=== PATIENT | female | born 1940 | race Caucasian/White ===

== ENCOUNTER 2022-05-04 19:41 | Emergency (ER) | payer OTHER ==
[~2022-05-04] VITALS: Ht 162.6 cm; Wt 63.0 kg
[2022-05-04 20:12] VITALS: BP_SYST 158
--- NOTE | 2022-05-04 20:12 | NUR ---
Patient came to the ER accompanmied by here for evaluation s/p mechanical fall happened around 1600 hrs, unwitnessed. Patient does not remember what happened. Patient with history of Alzheimer's dse. Denies pain at this time. No associated symptoms. Does report associated knee pain bilaterally. Patient breathing easy, respirations even unlabored. Patient ambulatory with steady gait.
--- NOTE | 2022-05-04 20:23 | NUR ---
Patient triaged and placed in waiting room. VS checked and patient appears in no acute distress at this time. Accompanied by , awaiting available bed, and MD notified of need for MSE.
--- NOTE | 2022-05-04 22:50 | NUR ---
Pt placed to ER chair 1. Pt BIB r/t c/o head pain s/p fall earlier this afternoon. states that he brought pt to urgent care, but was then referred to ER for further evaluation. states that pt told her she fell and hit head, but pt currently denies c/o pain or discomfort and there are no s/s injury or trauma. Denies LOC.
--- NOTE | 2022-05-04 23:00 | NUR ---
ER examining patient.
[2022-05-05 01:21] VITALS: BP_SYST 132
--- NOTE | 2022-05-05 01:21 | NUR ---
Patient given written and verbal discharge instructions and verbalizes understanding. ER MD discussed with patient the results and treatment provided. Patient in stable condition. ID arm band removed. No Rx given. Patient educated on pain management and to follow up with PMD. Pain Scale 0/10. Opportunity for questions provided and answered. Medication side effect fact sheet provided.
== END 2022-05-05 01:21 | disposition home or self-care (01) ==
LOC: SED 19:41
DX: S80.912A Unspecified superficial injury of left knee, initial encounter (principal); S80.911A Unspecified superficial injury of right knee, initial encounter; Z79.899 Other long term (current) drug therapy; W19.XXXA Unspecified fall, initial encounter; Y93.89 Activity, other specified; Y92.89 Other specified places as the place of occurrence of the external cause; Y99.8 Other external cause status
CPT/HCPCS: 70450-TC; 72125-TC; 76376; 99284

== ENCOUNTER 2023-04-11 14:32 | Inpatient (IN) | payer OTHER ==
[~2023-04-11] VITALS: Ht 165.1 cm; Wt 59.0 kg
[2023-04-11 14:35] VITALS: RESP 18; TEMP 97.3
[2023-04-11] MEDS ORDERED: NACL 0.9% 1,000 ML IV ONE (14:45)
[2023-04-11 15:09] LABS: BASOPHILS # (AUTO) 0.1 K/uL (0.0-0.2); BASOPHILS % (AUTO) 0.9 % (0.0-2.0); EOSINOPHILS # (AUTO) 0.1 K/uL (0.0-0.4); EOSINOPHILS % (AUTO) 1.2 % (0.0-4.0); HEMOGLOBIN 12.1 g/dL (12.0-16.0); LYMPHOCYTES # (AUTO) 1.6 K/uL (1.0-5.5); LYMPHOCYTES % (AUTO) 16.9 % (20.5-51.5); MEAN CORPUSCULAR HEMOGLOBIN 29 pg (27-31); MEAN CORPUSCULAR HGB CONC 33 % (32-36); MEAN CORPUSCULAR VOLUME 88 fL (79.0-98.0); MONOCYTES # (AUTO) 0.6 K/uL (0.0-1.0); MONOCYTES % (AUTO) 6.2 % (1.7-9.3); NEUTROPHILS % (AUTO) 74.8 % (40.0-70.0); PLATELET COUNT (AUTO) 307 K/uL (130-430); RED BLOOD CELL COUNT(AUTO) 4.23 MIL/uL (4.2-6.2); RED CELL DISTRIBUTION WIDTH 13.1 % (9.0-15.0); WHITE BLOOD COUNT (AUTO) 9.4 K/uL (4.8-10.8)
[2023-04-11 15:18] LABS: ANION GAP 5 (5-15); CALCIUM 9.3 mg/dL (8.4-11.0); CARBON DIOXIDE 31 mmol/L (23-29); CHLORIDE 102 mmol/L (98-107); CREATININE 1.08 mg/dL (0.55-1.30); GLUCOSE 132 mg/dL (74-106); POTASSIUM 3.7 mmol/L (3.5-5.1); SODIUM SERUM 138 mmol/L (136-145); UREA NITROGEN, BLOOD 8 mg/dL (8-21)
[2023-04-11 15:21] LABS: PROTHROMBIN TIME 10.4 SECS (9.5-12.5)
[2023-04-11 15:23] LABS: ACETONE, SERUM NEGATIVE (NEGATIVE)
[2023-04-11 15:28] LABS: BILIRUBIN,URINE NEGATIVE (NEGATIVE); BLOOD, URINE NEGATIVE (NEGATIVE); CLARITY/URINE CLEAR (CLEAR); COLOR,URINE YELLOW (YELLOW); GLUCOSE,URINE NEGATIVE (NEGATIVE); KETONES,URINE NEGATIVE (NEGATIVE); LEUKOCYTE ESTERASE ,URINE TRACE (NEGATIVE); NITRITE, URINE NEGATIVE (NEGATIVE); PROTEIN URINE NEGATIVE (NEGATIVE)
[2023-04-11 15:32] LABS: ALANINE AMINOTRANSFERASE 28 U/L (12-78); ALBUMIN 2.9 g/dL (3.4-4.8); ASPARTATE AMINOTRANSFERASE 21 U/L (10-37); BILIRUBIN,DIRECT 0.2 mg/dL (0.0-0.3); CREATINE KINASE, TOTAL 66 U/L (26-192); FREE T4 (FREE THYROXINE) 1.3 ng/dL (0.6-1.6); THYROID STIMULATING HORMONE 0.49 uIu/mL (0.34-4.82); TOTAL BILIRUBIN 0.4 mg/dL (0.0-1.0); TOTAL PROTEIN, SERUM 6.7 g/dL (6.4-8.3)
[2023-04-11 15:35] LABS: BACTERIA,URINE RARE /HPF (None Seen); MUCUS,URINE 1+ /LPF (None Seen); WBC,URINE 0-3 /HPF (0-3)
[2023-04-11] MEDS ORDERED: PROMETHAZINE DM PO (15:56)
[2023-04-11] MEDS ORDERED: MEMANTINE PO (15:56)
[2023-04-11] MEDS ORDERED: METO25TA3 PO (15:56)
[2023-04-11] MEDS ORDERED: DONE-51 PO (15:56)
[2023-04-11] MEDS ORDERED: ALPR0.255 PO (15:56)
[2023-04-11] MEDS ORDERED: ATOR20TA64 PO (15:56)
[2023-04-11] MEDS ORDERED: ASPIRIN 81 MG TAB.CHEW PO ONE (16:00)
[2023-04-11] MEDS: D5/0.45 NS 1,000 ML IV SCH (16:47)
[2023-04-11] MEDS ORDERED: NALOXONE HCL 0.4 MG/ML AMP (NARCAN) IVP PRN ×2 (18:30)
[2023-04-11] MEDS ORDERED: HYDROcodone/ACETAMIN 10-325 MG TAB PO PRN (18:30)
[2023-04-11] MEDS ORDERED: ALPRAZolam 0.25 MG TABLET PO SCH (18:30)
[2023-04-11] MEDS ORDERED: HYDROcodone/ACETAMIN 5-325 MG TAB (NORCO/ VICODIN) PO PRN (18:30)
[2023-04-11] MEDS ORDERED: ONDANSETRON HCL 4 MG/2 ML VIAL IVP PRN (18:30)
[2023-04-11] MEDS ORDERED: ACETAMINOPHEN 325 MG TABLET PO PRN (18:30)
[2023-04-11] MEDS ORDERED: MEMANTINE PO SCH (21:00)
[2023-04-11] MEDS ORDERED: HALOPERIDOL LACTATE 5 MG/ML VIAL ONE (21:09)
[2023-04-11] MEDS ORDERED: HALOPERIDOL LACTATE 5 MG/ML VIAL IVP ONE (21:15)
[2023-04-11] MEDS: ATORVASTATIN 20 MG TABLET PO SCH (23:07)
[2023-04-11] MEDS: METOPROLOL SUCCINATE 25 MG TAB.SR.24H (TOPROL XL) PO SCH (23:12)
[2023-04-12] MEDS: LORazepam 2 MG/ML VIAL IVP PRN ×2 (00:05→17:41)
[2023-04-12] MEDS: D5/0.45 NS 1,000 ML IV SCH ×3 (04:16→22:15)
[2023-04-12] MEDS ORDERED: ALPRAZolam 0.25 MG TABLET PO PRN (07:05)
[2023-04-12] MEDS ORDERED: HYDROcodone/ACETAMIN 5-325 MG TAB (NORCO/ VICODIN) PO PRN (07:15)
[2023-04-12 07:47] LABS: BASOPHILS # (AUTO) 0.1 K/uL (0.0-0.2); BASOPHILS % (AUTO) 0.9 % (0.0-2.0); EOSINOPHILS # (AUTO) 0.2 K/uL (0.0-0.4); EOSINOPHILS % (AUTO) 2.8 % (0.0-4.0); HEMATOCRIT 37.8 % (36-48); LYMPHOCYTES % (AUTO) 26.5 % (20.5-51.5); MEAN CORPUSCULAR HEMOGLOBIN 28 pg (27-31); MEAN CORPUSCULAR HGB CONC 32 % (32-36); MEAN CORPUSCULAR VOLUME 88 fL (79.0-98.0); MONOCYTES # (AUTO) 0.8 K/uL (0.0-1.0); NEUTROPHILS # (AUTO) 4.3 K/uL (1.8-7.7); NEUTROPHILS % (AUTO) 58.8 % (40.0-70.0); PLATELET COUNT (AUTO) 306 K/uL (130-430); RED CELL DISTRIBUTION WIDTH 13.5 % (9.0-15.0); WHITE BLOOD COUNT (AUTO) 7.4 K/uL (4.8-10.8)
[2023-04-12 08:13] LABS: ALANINE AMINOTRANSFERASE 25 U/L (12-78); ALBUMIN 2.6 g/dL (3.4-4.8); ANION GAP 7 (5-15); ASPARTATE AMINOTRANSFERASE 15 U/L (10-37); CALCIUM 9.1 mg/dL (8.4-11.0); CARBON DIOXIDE 30 mmol/L (23-29); CHLORIDE 104 mmol/L (98-107); CREATININE 0.86 mg/dL (0.55-1.30); GLUCOSE 108 mg/dL (74-106); POTASSIUM 3.3 mmol/L (3.5-5.1); SODIUM SERUM 141 mmol/L (136-145); TOTAL BILIRUBIN 0.3 mg/dL (0.0-1.0); TOTAL PROTEIN, SERUM 6.5 g/dL (6.4-8.3); UREA NITROGEN, BLOOD 6 mg/dL (8-21)
[2023-04-12] MEDS: METOPROLOL SUCCINATE 25 MG TAB.SR.24H (TOPROL XL) PO SCH ×2 (08:43→22:19)
[2023-04-12] MEDS ORDERED: METOPROLOL TARTRATE 25 MG TABLET ONE (08:43)
[2023-04-12] MEDS: MEMANTINE HCL 5 MG TABLET PO SCH ×2 (09:00→22:19)
[2023-04-12] MEDS: DONEPEZIL HCL 5 MG TABLET (ARICEPT) PO SCH (09:00)
[2023-04-12] MEDS ORDERED: LORazepam 2 MG/ML VIAL ONE (17:40)
[2023-04-12 20:20] VITALS: BP_SYST 160; PULSE 81; RESP 16; RESP 18; TEMP 98.5
[2023-04-12] MEDS: ATORVASTATIN 20 MG TABLET PO SCH (22:18)
[2023-04-13] VITALS (8 sets, daily range): BP systolic 132–183; PULSE 76–88; RESP 15–20; TEMP 97.8–98.8; O2SAT 95–97
[2023-04-13 05:39] LABS: BASOPHILS # (AUTO) 0.1 K/uL (0.0-0.2); BASOPHILS % (AUTO) 0.8 % (0.0-2.0); EOSINOPHILS # (AUTO) 0.2 K/uL (0.0-0.4); EOSINOPHILS % (AUTO) 2.5 % (0.0-4.0); HEMATOCRIT 36.2 % (36-48); HEMOGLOBIN 11.9 g/dL (12.0-16.0); LYMPHOCYTES # (AUTO) 1.6 K/uL (1.0-5.5); LYMPHOCYTES % (AUTO) 20.2 % (20.5-51.5); MEAN CORPUSCULAR HEMOGLOBIN 28 pg (27-31); MEAN CORPUSCULAR HGB CONC 33 % (32-36); MEAN CORPUSCULAR VOLUME 86 fL (79.0-98.0); MONOCYTES # (AUTO) 0.6 K/uL (0.0-1.0); MONOCYTES % (AUTO) 7.8 % (1.7-9.3); NEUTROPHILS # (AUTO) 5.4 K/uL (1.8-7.7); NEUTROPHILS % (AUTO) 68.7 % (40.0-70.0); PLATELET COUNT (AUTO) 315 K/uL (130-430); RED BLOOD CELL COUNT(AUTO) 4.19 MIL/uL (4.2-6.2); RED CELL DISTRIBUTION WIDTH 13.5 % (9.0-15.0); WHITE BLOOD COUNT (AUTO) 7.9 K/uL (4.8-10.8)
[2023-04-13 06:01] LABS: ANION GAP 7 (5-15); CARBON DIOXIDE 28 mmol/L (23-29); CHLORIDE 104 mmol/L (98-107); GLUCOSE 121 mg/dL (74-106); POTASSIUM 3.3 mmol/L (3.5-5.1); SODIUM SERUM 139 mmol/L (136-145); UREA NITROGEN, BLOOD 6 mg/dL (8-21)
[2023-04-13] MEDS: D5/0.45 NS 1,000 ML IV SCH ×3 (08:25→23:23)
[2023-04-13] MEDS: DONEPEZIL HCL 5 MG TABLET (ARICEPT) PO SCH (09:00)
[2023-04-13] MEDS: MEMANTINE HCL 5 MG TABLET PO SCH ×2 (09:00→21:42)
[2023-04-13] MEDS: ASPIRIN 81 MG TABLET(ECOTRIN) PO SCH (09:01)
[2023-04-13] MEDS: METOPROLOL SUCCINATE 25 MG TAB.SR.24H (TOPROL XL) PO SCH ×2 (09:02→21:42)
[2023-04-13] MEDS ORDERED: POTASSIUM CHLORIDE 20 MEQ TABLET.ER PO ONE (15:45)
[2023-04-13] MEDS: LORazepam 2 MG/ML VIAL IVP PRN ×2 (17:11→23:25)
[2023-04-13] MEDS: ATORVASTATIN 20 MG TABLET PO SCH (21:42)
[2023-04-14] VITALS (8 sets, daily range): BP systolic 96–176; PULSE 64–87; RESP 16–20; TEMP 97.3–99.2; O2SAT 93–99
[2023-04-14 05:28] LABS: BASOPHILS # (AUTO) 0.1 K/uL (0.0-0.2); BASOPHILS % (AUTO) 0.7 % (0.0-2.0); EOSINOPHILS # (AUTO) 0.2 K/uL (0.0-0.4); EOSINOPHILS % (AUTO) 2.8 % (0.0-4.0); HEMOGLOBIN 11.6 g/dL (12.0-16.0); LYMPHOCYTES # (AUTO) 1.8 K/uL (1.0-5.5); LYMPHOCYTES % (AUTO) 24.4 % (20.5-51.5); MEAN CORPUSCULAR HEMOGLOBIN 29 pg (27-31); MEAN CORPUSCULAR HGB CONC 34 % (32-36); MEAN CORPUSCULAR VOLUME 86 fL (79.0-98.0); MONOCYTES # (AUTO) 0.7 K/uL (0.0-1.0); MONOCYTES % (AUTO) 10.1 % (1.7-9.3); NEUTROPHILS # (AUTO) 4.5 K/uL (1.8-7.7); PLATELET COUNT (AUTO) 328 K/uL (130-430); RED BLOOD CELL COUNT(AUTO) 3.95 MIL/uL (4.2-6.2); RED CELL DISTRIBUTION WIDTH 13.3 % (9.0-15.0); WHITE BLOOD COUNT (AUTO) 7.3 K/uL (4.8-10.8)
[2023-04-14 05:32] LABS: ANION GAP 4 (5-15); CALCIUM 9.1 mg/dL (8.4-11.0); CARBON DIOXIDE 30 mmol/L (23-29); CHLORIDE 106 mmol/L (98-107); CREATININE 0.85 mg/dL (0.55-1.30); GLUCOSE 123 mg/dL (74-106); POTASSIUM 3.3 mmol/L (3.5-5.1); SODIUM SERUM 140 mmol/L (136-145); UREA NITROGEN, BLOOD 5 mg/dL (8-21)
[2023-04-14] MEDS: DONEPEZIL HCL 5 MG TABLET (ARICEPT) PO SCH (09:04)
[2023-04-14] MEDS: ASPIRIN 81 MG TABLET(ECOTRIN) PO SCH (09:05)
[2023-04-14] MEDS: METOPROLOL SUCCINATE 25 MG TAB.SR.24H (TOPROL XL) PO SCH ×2 (09:05→20:18)
[2023-04-14] MEDS: MEMANTINE HCL 5 MG TABLET PO SCH ×2 (09:05→20:18)
[2023-04-14] MEDS: D5/0.45 NS 1,000 ML IV SCH ×2 (09:06→18:17)
[2023-04-14] MEDS: LORazepam 2 MG/ML VIAL IVP PRN ×2 (12:38→21:42)
[2023-04-14] MEDS ORDERED: KCL 20 mEq in 100 mL (PREMIX) 100 ML IV ONE (18:15)
[2023-04-15 00:16] VITALS: BP_SYST 145; PULSE 86; RESP 19; TEMP 98; O2SAT 95
[2023-04-15 06:09] LABS: BASOPHILS # (AUTO) 0.1 K/uL (0.0-0.2); BASOPHILS % (AUTO) 0.7 % (0.0-2.0); EOSINOPHILS # (AUTO) 0.2 K/uL (0.0-0.4); EOSINOPHILS % (AUTO) 1.8 % (0.0-4.0); HEMATOCRIT 38.1 % (36-48); HEMOGLOBIN 12.5 g/dL (12.0-16.0); LYMPHOCYTES # (AUTO) 1.9 K/uL (1.0-5.5); LYMPHOCYTES % (AUTO) 22.8 % (20.5-51.5); MEAN CORPUSCULAR HEMOGLOBIN 29 pg (27-31); MEAN CORPUSCULAR HGB CONC 33 % (32-36); MEAN CORPUSCULAR VOLUME 87 fL (79.0-98.0); MONOCYTES # (AUTO) 0.7 K/uL (0.0-1.0); MONOCYTES % (AUTO) 7.9 % (1.7-9.3); NEUTROPHILS # (AUTO) 5.5 K/uL (1.8-7.7); NEUTROPHILS % (AUTO) 66.8 % (40.0-70.0); PLATELET COUNT (AUTO) 357 K/uL (130-430); RED BLOOD CELL COUNT(AUTO) 4.39 MIL/uL (4.2-6.2); RED CELL DISTRIBUTION WIDTH 13.6 % (9.0-15.0); WHITE BLOOD COUNT (AUTO) 8.3 K/uL (4.8-10.8)
[2023-04-15 06:20] LABS: INR 1.1 (0.8-1.2); PROTHROMBIN TIME 10.9 SECS (9.5-12.5)
[2023-04-15 06:30] LABS: ANION GAP 8 (5-15); CALCIUM 9.3 mg/dL (8.4-11.0); CARBON DIOXIDE 27 mmol/L (23-29); CHLORIDE 104 mmol/L (98-107); GLUCOSE 115 mg/dL (74-106); POTASSIUM 3.4 mmol/L (3.5-5.1); SODIUM SERUM 139 mmol/L (136-145); UREA NITROGEN, BLOOD 5 mg/dL (8-21)
[2023-04-15] MEDS ORDERED: CEFAZOLIN 1 GM IVPB PREMIX 50 ML IV ONE (08:00)
[2023-04-15 08:01] VITALS: BP_SYST 121; PULSE 71; RESP 18; TEMP 97.8; O2SAT 96
[2023-04-15] MEDS: DONEPEZIL HCL 5 MG TABLET (ARICEPT) PO SCH (09:00)
[2023-04-15] MEDS: MEMANTINE HCL 5 MG TABLET PO SCH (09:00)
[2023-04-15 10:00] VITALS: O2SAT 96
[2023-04-15 11:32] VITALS: BP_SYST 151; PULSE 75; RESP 20; TEMP 98; O2SAT 95
[2023-04-15] MEDS ORDERED: MIDAZOLAM HCL 5 MG/5 ML VIAL ONE (11:32)
[2023-04-15] MEDS ORDERED: fentaNYL CITRATE/PF 100 MCG/2 ML AMP ONE (11:32)
[2023-04-15 13:51] LABS: BASOPHILS # (AUTO) 0.1 K/uL (0.0-0.2); BASOPHILS % (AUTO) 0.5 % (0.0-2.0); EOSINOPHILS # (AUTO) 0.1 K/uL (0.0-0.4); EOSINOPHILS % (AUTO) 1.2 % (0.0-4.0); HEMATOCRIT 37.3 % (36-48); HEMOGLOBIN 12.3 g/dL (12.0-16.0); LYMPHOCYTES # (AUTO) 1.7 K/uL (1.0-5.5); LYMPHOCYTES % (AUTO) 14.9 % (20.5-51.5); MEAN CORPUSCULAR HEMOGLOBIN 29 pg (27-31); MEAN CORPUSCULAR HGB CONC 33 % (32-36); MEAN CORPUSCULAR VOLUME 87 fL (79.0-98.0); MONOCYTES # (AUTO) 0.7 K/uL (0.0-1.0); MONOCYTES % (AUTO) 6.4 % (1.7-9.3); NEUTROPHILS # (AUTO) 8.6 K/uL (1.8-7.7); PLATELET COUNT (AUTO) 358 K/uL (130-430); RED BLOOD CELL COUNT(AUTO) 4.27 MIL/uL (4.2-6.2); RED CELL DISTRIBUTION WIDTH 13.3 % (9.0-15.0); WHITE BLOOD COUNT (AUTO) 11.1 K/uL (4.8-10.8)
[2023-04-15] MEDS ORDERED: HYDROcodone/ACETAMIN 5-325 MG TAB (NORCO/ VICODIN) GT PRN ×2 (14:06→14:08)
[2023-04-15] MEDS ORDERED: ACETAMINOPHEN 650 MG/20.3 ML UDC GT PRN ×2 (14:15)
[2023-04-15 16:00] VITALS: BP_SYST 150; PULSE 94; RESP 18; TEMP 98; O2SAT 97
[2023-04-15] MEDS: LORazepam 2 MG/ML VIAL IVP PRN (16:34)
[2023-04-15] MEDS: D5/0.45 NS 1,000 ML IV SCH ×2 (18:31→21:12)
[2023-04-15 20:00] VITALS: BP_SYST 145; PULSE 110; RESP 18; TEMP 98.4; O2SAT 95; O2SAT 96
[2023-04-15] MEDS: MEMANTINE HCL 5 MG TABLET GT SCH (21:12)
[2023-04-15] MEDS: METOPROLOL TARTRATE 25 MG TABLET GT SCH (21:12)
[2023-04-16] VITALS: BP_SYST 103; PULSE 87; RESP 18; TEMP 97.2; O2SAT 96
[2023-04-16] MEDS: D5/0.45 NS 1,000 ML IV SCH ×2 (04:15→21:02)
[2023-04-16 08:00] VITALS: BP_SYST 144; PULSE 87; RESP 16; TEMP 99; O2SAT 95
[2023-04-16] MEDS: DONEPEZIL HCL 5 MG TABLET (ARICEPT) GT SCH (08:51)
[2023-04-16] MEDS: METOPROLOL TARTRATE 25 MG TABLET GT SCH ×2 (08:51→21:01)
[2023-04-16] MEDS: MEMANTINE HCL 5 MG TABLET GT SCH ×2 (08:52→21:01)
[2023-04-16 11:09] VITALS: BP_SYST 136; PULSE 73; RESP 16; TEMP 98.1; O2SAT 95
[2023-04-16 15:07] VITALS: BP_SYST 153; PULSE 87; RESP 16; TEMP 96.5; O2SAT 93
[2023-04-16] MEDS: LORazepam 2 MG/ML VIAL IVP PRN (15:15)
[2023-04-16 20:00] VITALS: BP_SYST 152; PULSE 103; RESP 18; TEMP 98.4; O2SAT 95; O2SAT 96
[2023-04-17] VITALS (7 sets, daily range): BP systolic 113–153; PULSE 70–101; RESP 16–20; TEMP 97.4–99.2; O2SAT 94–97
[2023-04-17] MEDS: D5/0.45 NS 1,000 ML IV SCH ×3 (06:05→22:15)
[2023-04-17] MEDS: MEMANTINE HCL 5 MG TABLET GT SCH ×2 (09:07→22:14)
[2023-04-17] MEDS: METOPROLOL TARTRATE 25 MG TABLET GT SCH ×2 (09:08→22:15)
[2023-04-17] MEDS: DONEPEZIL HCL 5 MG TABLET (ARICEPT) GT SCH (09:09)
[2023-04-17] MEDS: LORazepam 2 MG/ML VIAL IVP PRN ×2 (12:28→22:29)
[2023-04-18] VITALS (7 sets, daily range): BP systolic 127–150; PULSE 79–101; RESP 16–20; TEMP 97.4–98.8; O2SAT 95–97
[2023-04-18] MEDS: D5/0.45 NS 1,000 ML IV SCH ×2 (08:15→21:05)
[2023-04-18] MEDS: MEMANTINE HCL 5 MG TABLET GT SCH ×2 (09:41→21:04)
[2023-04-18] MEDS: QUEtiapine FUMARATE 25 MG TABLET PO SCH ×2 (09:41→21:04)
[2023-04-18] MEDS: METOPROLOL TARTRATE 25 MG TABLET GT SCH ×2 (09:42→21:04)
[2023-04-18] MEDS: DONEPEZIL HCL 5 MG TABLET (ARICEPT) GT SCH (09:43)
[2023-04-19 00:20] VITALS: BP_SYST 122; PULSE 78; RESP 20; TEMP 97.6; O2SAT 96
[2023-04-19] MEDS: D5/0.45 NS 1,000 ML IV SCH ×2 (05:27→13:57)
[2023-04-19 06:57] LABS: BASOPHILS # (AUTO) 0.1 K/uL (0.0-0.2); BASOPHILS % (AUTO) 1.1 % (0.0-2.0); EOSINOPHILS # (AUTO) 0.3 K/uL (0.0-0.4); EOSINOPHILS % (AUTO) 4.6 % (0.0-4.0); HEMATOCRIT 34.8 % (36-48); HEMOGLOBIN 11.4 g/dL (12.0-16.0); LYMPHOCYTES # (AUTO) 1.7 K/uL (1.0-5.5); LYMPHOCYTES % (AUTO) 24.3 % (20.5-51.5); MEAN CORPUSCULAR HEMOGLOBIN 28 pg (27-31); MEAN CORPUSCULAR HGB CONC 33 % (32-36); MEAN CORPUSCULAR VOLUME 87 fL (79.0-98.0); MONOCYTES # (AUTO) 0.6 K/uL (0.0-1.0); NEUTROPHILS # (AUTO) 4.4 K/uL (1.8-7.7); PLATELET COUNT (AUTO) 324 K/uL (130-430); RED BLOOD CELL COUNT(AUTO) 4.01 MIL/uL (4.2-6.2); RED CELL DISTRIBUTION WIDTH 13.4 % (9.0-15.0); WHITE BLOOD COUNT (AUTO) 7.1 K/uL (4.8-10.8)
[2023-04-19 07:38] LABS: ALANINE AMINOTRANSFERASE 13 U/L (12-78); ALBUMIN 2.3 g/dL (3.4-4.8); ANION GAP 7 (5-15); ASPARTATE AMINOTRANSFERASE 12 U/L (10-37); CALCIUM 8.4 mg/dL (8.4-11.0); CARBON DIOXIDE 28 mmol/L (23-29); CHLORIDE 105 mmol/L (98-107); CREATININE 0.79 mg/dL (0.55-1.30); GLUCOSE 96 mg/dL (74-106); POTASSIUM 3.4 mmol/L (3.5-5.1); SODIUM SERUM 140 mmol/L (136-145); TOTAL BILIRUBIN 0.6 mg/dL (0.0-1.0); TOTAL PROTEIN, SERUM 5.9 g/dL (6.4-8.3); UREA NITROGEN, BLOOD 11 mg/dL (8-21)
[2023-04-19 07:52] VITALS: BP_SYST 115; PULSE 78; RESP 18; TEMP 97; O2SAT 95
[2023-04-19] MEDS: DONEPEZIL HCL 5 MG TABLET (ARICEPT) GT SCH (09:03)
[2023-04-19] MEDS: QUEtiapine FUMARATE 25 MG TABLET PO SCH (09:04)
[2023-04-19] MEDS: MEMANTINE HCL 5 MG TABLET GT SCH (09:04)
[2023-04-19] MEDS: METOPROLOL TARTRATE 25 MG TABLET GT SCH (09:04)
[2023-04-19 10:07] VITALS: O2SAT 97
[2023-04-19 11:30] VITALS: BP_SYST 125; PULSE 69; RESP 16; TEMP 97.9; O2SAT 95
[2023-04-19] MEDS ORDERED: POTASSIUM CHLORIDE 20 MEQ/PKT PACKET PO ONE (13:00)
[2023-04-19 16:35] VITALS: BP_SYST 151; PULSE 76; RESP 16; TEMP 98.9; O2SAT 99
[2023-04-19 16:43] VITALS: BP_SYST 151; PULSE 76; RESP 16; TEMP 98.9; O2SAT 99
== END 2023-04-19 19:20 | DRG 641 ==
LOC: SED 14:32 → STU 16:09 → SMU 04-16 07:50
PROVIDERS: ADMIT Specialist; ATTEND Specialist
PROC: 0DH63UZ Insertion of Feeding Device into Stomach, Percutaneous Approach (ICD-10-PCS; principal; 2023-04-15 11:00)
DX: E86.0 Dehydration (principal); F02.818 Dementia in other diseases classified elsewhere, unspecified severity, with other behavioral disturbance; E44.0 Moderate protein-calorie malnutrition; R79.89 Other specified abnormal findings of blood chemistry; E78.5 Hyperlipidemia, unspecified; R13.10 Dysphagia, unspecified; R62.7 Adult failure to thrive; I10 Essential (primary) hypertension; E87.6 Hypokalemia; G30.9 Alzheimer's disease, unspecified; Z68.21 Body mass index [BMI] 21.0-21.9, adult
CPT/HCPCS: 36415; 43246; 70450-TC; 71045; 76376; 80048; 80053; 80076; 81000; 81001; 81015; 82009; 82550; 83605; 83735; 84439; 84443; 84484; 85025; 85610; 85730; 87086; 93005; 93306; 96361; 96374; 97110-GP; 97116-GP; 97530-GP; 99285; G0378; J0690; J1630; J2060; J2250; J2405; J3010; J3480